=== PATIENT | female | born 1970 | race Caucasian/White ===

== ENCOUNTER 2019-10-24 21:26 | Inpatient (IN) | payer MEDICAID ==
[~2019-10-24] VITALS: Ht 167.6 cm; Wt 53.5 kg
[2019-10-24] MEDS ORDERED: SODIUM CHLORIDE 0.9% 1,000 ML IV ONE (23:03)
[2019-10-24] MEDS ORDERED: ONDANSETRON HCL 4MG/2ML INJ IV STA (23:03)
[2019-10-24] MEDS ORDERED: MORPHINE SULFATE 4 MG/ML CPJ (NOT FOR IM USE) IV STA (23:03)
[2019-10-24 23:39] LABS: BASOPHILS % 2.4 % (0.0-2.0); EOSINOPHILS % 1.2 % (0.0-5.0); HEMATOCRIT. 29.9 % (36.0-48.0); HEMOGLOBIN. 9.5 g/dL (12.0-16.0); LYMPHOCYTES % 49.4 % (20.0-50.0); MEAN CORPUSCULAR VOLUME 65.9 fL (81.0-99.0); MEAN PLATELET VOLUME 6.3 fl (7.4-10.4); MONOCYTES % 8.4 % (2.0-8.0); NEUTROPHILS % 38.6 % (40.0-76.0); PLATELET 456 x1000/uL (130-400); RED BLOOD CELL COUNT 4.54 mill/uL (4.2-5.4); RED CELL DISTRIBUTION WIDTH 30.5 % (11.6-14.6)
[2019-10-24 23:42] LABS: CHLORIDE 108 mEq/L (98-107)
[2019-10-24 23:52] LABS: PLATELET ESTIMATE NORMAL
[2019-10-24 23:59] LABS: HCG SCREEN NEGATIVE
[2019-10-25] MEDS ORDERED: MIDAZOLAM HCL 2 MG/2 ML VIAL IV ONE (00:15)
[2019-10-25] MEDS ORDERED: KETOROLAC 15MG/ML VIAL IV ONE (00:15)
[2019-10-25] MEDS ORDERED: IOHEXOL-300 100 ML BOTTLE ONE (01:34)
[2019-10-25] MEDS: DEXT 5%/0.45% NACL 1000ML 1,000 ML IV SCH ×2 (03:28→16:48)
[2019-10-25] MEDS ORDERED: ACETAMINOPHEN 325MG TABLET PO PRN ×2 (03:30)
[2019-10-25] MEDS ORDERED: MAGNESIUM/ALUMINUM HYDROXIDE/SIMETHICONE 30ML UDC PO PRN (03:30)
[2019-10-25] MEDS ORDERED: GUAIFENESIN 200MG/10ML SUGAR FREE UDC PO PRN (03:30)
[2019-10-25] MEDS ORDERED: CLONIDINE 0.1MG TABLET PO PRN (03:30)
[2019-10-25] MEDS: MORPHINE SULFATE 2 MG/ML CPJ (NOT FOR IM USE) IV PRN ×4 (07:47→22:16)
[2019-10-25] MEDS: ONDANSETRON HCL 4MG/2ML INJ IV PRN (07:49)
[2019-10-25] MEDS: FAMOTIDINE 20MG/2ML VIAL IV SCH ×2 (09:06→22:15)
[2019-10-25] MEDS: ENOXAPARIN 40MG/0.4ML SYR SUBCUT SCH (09:07)
[2019-10-25 16:00] VITALS: BP 109/74
[2019-10-25] MEDS ORDERED: OMEP40CA12 PO (16:03)
[2019-10-25] MEDS ORDERED: TRAZ-252 MT (16:03)
[2019-10-25] MEDS ORDERED: CLON1TAB23 MT (16:03)
[2019-10-25] MEDS ORDERED: CITA40TA22 MT (16:03)
[2019-10-25 16:18] VITALS: BP 109/74
[2019-10-25] MEDS: OMEPRAZOLE 20MG CAPSULE EXTENDED RELEASE PO SCH (17:41)
[2019-10-25] MEDS ORDERED: PNEUMOCOCCAL 23-VAL P-SAC VAC 0.5 ML IM ONE (18:00)
[2019-10-25] MEDS: DIPHENHYDRAMINE 50MG/ML VIAL IV PRN (18:42)
[2019-10-25] MEDS ORDERED: ZOLPIDEM TARTRATE 5MG TABLET PO PRN (21:00)
[2019-10-25] MEDS: TRAZODONE HCL 50MG TABLET PO SCH (22:15)
[2019-10-26] MEDS: MORPHINE SULFATE 2 MG/ML CPJ (NOT FOR IM USE) IV PRN ×4 (02:44→20:37)
[2019-10-26 08:00] VITALS: BP 120/79
[2019-10-26] MEDS: FAMOTIDINE 20MG/2ML VIAL IV SCH (08:15)
[2019-10-26] MEDS: ENOXAPARIN 40MG/0.4ML SYR SUBCUT SCH (08:16)
[2019-10-26] MEDS: CITALOPRAM HYDROBROMIDE 10MG TABLET PO SCH (08:16)
[2019-10-26] MEDS: OMEPRAZOLE 20MG CAPSULE EXTENDED RELEASE PO SCH ×2 (08:16→16:10)
[2019-10-26] MEDS: DEXT 5%/0.45% NACL 1000ML 1,000 ML IV SCH ×2 (08:51→20:37)
[2019-10-26] MEDS: CLONAZEPAM 1MG TABLET PO PRN ×2 (08:51→12:35)
[2019-10-26 12:00] VITALS: BP 103/68
[2019-10-26] MEDS ORDERED: CLONAZEPAM 1MG TABLET PO NR (12:30)
[2019-10-26] MEDS: DIPHENHYDRAMINE 50MG/ML VIAL IV PRN (12:48)
[2019-10-26 16:00] VITALS: BP 109/68
[2019-10-26 20:00] VITALS: BP 118/81
[2019-10-26] MEDS: TRAZODONE HCL 50MG TABLET PO SCH (20:36)
[2019-10-26] MEDS: ONDANSETRON HCL 4MG/2ML INJ IV PRN (20:36)
[2019-10-27] VITALS: BP 137/74
[2019-10-27 04:00] VITALS: BP 95/60
[2019-10-27] MEDS: MORPHINE SULFATE 2 MG/ML CPJ (NOT FOR IM USE) IV PRN ×2 (04:57→13:00)
[2019-10-27] MEDS: DIPHENHYDRAMINE 50MG/ML VIAL IV PRN (06:57)
[2019-10-27 08:00] VITALS: BP 99/56
[2019-10-27] MEDS: CITALOPRAM HYDROBROMIDE 10MG TABLET PO SCH (09:10)
[2019-10-27] MEDS: OMEPRAZOLE 20MG CAPSULE EXTENDED RELEASE PO SCH (09:11)
[2019-10-27] MEDS: ENOXAPARIN 40MG/0.4ML SYR SUBCUT SCH (09:11)
[2019-10-27] MEDS: DEXT 5%/0.45% NACL 1000ML 1,000 ML IV SCH (09:59)
[2019-10-27] MEDS: CLONAZEPAM 1MG TABLET PO PRN (10:00)
[2019-10-27 12:00] VITALS: BP 95/53
[2019-10-27 15:43] VITALS: BP 100/56
[2019-10-27 16:06] VITALS: BP 107/64
== END 2019-10-27 17:38 | disposition home or self-care (01) | DRG 241 ==
LOC: ER 21:26 → 6EST 10-25 02:12 → EDBEDREQTM 10-25 04:46 → EDBEDREQSVC 10-25 04:46 → ENRESERV 10-25 14:24 → 6EST 10-27 06:30
PROVIDERS: ADMIT Internal Medicine; ATTEND Internal Medicine
DX: K29.00 Acute gastritis without bleeding (principal); F20.9 Schizophrenia, unspecified; G89.29 Other chronic pain; F32.9 Major depressive disorder, single episode, unspecified; F41.1 Generalized anxiety disorder; D63.8 Anemia in other chronic diseases classified elsewhere; E43 Unspecified severe protein-calorie malnutrition; D17.9 Benign lipomatous neoplasm, unspecified; K62.3 Rectal prolapse; K27.9 Peptic ulcer, site unspecified, unspecified as acute or chronic, without hemorrhage or perforation; Z98.84 Bariatric surgery status; Z87.11 Personal history of peptic ulcer disease; Z90.49 Acquired absence of other specified parts of digestive tract; Z72.0 Tobacco use; Z59.0 Homelessness; Z68.1 Body mass index [BMI] 19.9 or less, adult; K62.5 Hemorrhage of anus and rectum
CPT/HCPCS: 36415; 74177; 80053; 83605; 84703; 85025; 86850; 86900; 93005; 99285; J1200; J1650; J1885; J2250; J2270; J2405; J3490; J7030; Q9967

== ENCOUNTER 2019-10-29 03:07 | Emergency (ER) | payer MEDICAID ==
[~2019-10-29] VITALS: Ht 167.6 cm; Wt 54.0 kg
[~2019-10-29 03:07] MED LIST: CITA40TA22 MT; CLON1TAB23 MT; OMEP40CA12 PO; TRAZ-252 MT
[2019-10-29 03:20] VITALS: BP 126/85
== END 2019-10-29 04:30 | disposition left against medical advice (07) ==
LOC: ER 03:07
DX: R10.9 Unspecified abdominal pain (principal); Z53.21 Procedure and treatment not carried out due to patient leaving prior to being seen by health care provider
CPT/HCPCS: 93005

== ENCOUNTER 2019-11-16 02:49 | Emergency (ER) | payer MEDICAID ==
[~2019-11-16] VITALS: Ht 165.1 cm; Wt 50.0 kg
[2019-11-16] MEDS ORDERED: METOCLOPRAMIDE HCL 10MG/2ML VIAL IV STA (03:32)
[2019-11-16] MEDS ORDERED: SODIUM CHLORIDE 0.9% 1,000 ML IV ONE (03:32)
[2019-11-16] MEDS ORDERED: MORPHINE SULFATE 4 MG/ML CPJ (NOT FOR IM USE) IV STA (03:32)
[2019-11-16] MEDS ORDERED: DIATR MEGLU/DIATRIZOATE SOLN 30ML ONE (03:49)
[2019-11-16] MEDS ORDERED: IOHEXOL-300 100 ML BOTTLE ONE (03:49)
[2019-11-16 03:51] LABS: BASOPHILS % 1.1 % (0.0-2.0); EOSINOPHILS % 2.6 % (0.0-5.0); HEMATOCRIT. 29.8 % (36.0-48.0); HEMOGLOBIN. 9.5 g/dL (12.0-16.0); LYMPHOCYTES % 48.6 % (20.0-50.0); MEAN CORPUSCULAR HEMOGLOBIN 20.9 pg (28.0-32.0); MEAN CORPUSCULAR VOLUME 65.5 fL (81.0-99.0); MEAN PLATELET VOLUME 8.3 fl (7.4-10.4); NEUTROPHILS % 41.7 % (40.0-76.0); PLATELET 331 x1000/uL (130-400); RED BLOOD CELL COUNT 4.54 mill/uL (4.2-5.4); RED CELL DISTRIBUTION WIDTH 30.5 % (11.6-14.6)
[2019-11-16 04:01] LABS: CHLORIDE 107 mEq/L (98-107)
[2019-11-16 04:04] LABS: ETHANOL BLOOD < 10 mg/dL
[2019-11-16 05:24] LABS: PLATELET ESTIMATE NORMAL
[2019-11-16 05:29] LABS: CLARITY URINE CLEAR (CLEAR); COLOR URINE YELLOW (YELLOW); KETONES URINE NEGATIVE (NEGATIVE); LEUKOCYTE ESTERASE URINE 2+ (NEGATIVE); NITRITE URINE NEGATIVE (NEGATIVE); OCCULT BLOOD URINE NEGATIVE (NEGATIVE); PH URINE 5.5 (4.5-8.0); PROTEIN URINE NEGATIVE (NEGATIVE); SPECIFIC GRAVITY URINE 1.024 (1.005-1.030)
[2019-11-16] MEDS ORDERED: LORAZEPAM 2MG/ML CPJ IV ONE (05:30)
[2019-11-16 05:42] LABS: *AMPHETAMINES SCREEN URINE NEGATIVE (NEGATIVE)
[2019-11-16 05:43] LABS: *BARBITURATES SCREEN URINE NEGATIVE (NEGATIVE); *BENZODIAZEPINES SCREEN URINE NEGATIVE (NEGATIVE); *COCAINE SCREEN URINE NEGATIVE (NEGATIVE); METHADONE URINE SCREEN NEGATIVE (NEGATIVE); OPIATES URINE SCREEN NEGATIVE (NEGATIVE); PHENCYCLIDINE URINE SCREEN NEGATIVE (NEGATIVE)
[2019-11-16 05:44] LABS: CANNABINOID URINE SCREEN NEGATIVE (NEGATIVE)
[2019-11-16 08:07] VITALS: BP 133/82
== END 2019-11-16 09:10 | disposition home or self-care (01) ==
LOC: ER 02:49
DX: R11.2 Nausea with vomiting, unspecified (principal); Z98.84 Bariatric surgery status; Z90.49 Acquired absence of other specified parts of digestive tract
CPT/HCPCS: 36415; 74177; 80053; 80305; 80320; 81003; 81025; 83690; 85025; 93005; 96361; 96374; 96375; 99285; J2060; J2270; J2765; J7030; Q9963; Q9967; G0480